=== PATIENT | female | born 1945 | race Caucasian/White ===

== ENCOUNTER → 2017-01-02 | Outpatient (CLI) | payer MEDICARE ==
[2016-10-24 11:04] VITALS: BP 152/77
[~2017-01-02] MED LIST: ACET325T9 PO; ALPR0.25 PO; CELE200C PO; DONE5TAB33 PO; DULO60CA6 PO; META800T21 PO; NYST1POW2 PO; OXYC-323 PO; PHEN-318 PO
[2017-01-02 23:03] LABS: BILIRUBIN,URINE SMALL (NEG); GLUCOSE,URINE NEGATIVE (NEG); NITRITE,URINE POSITIVE (NEG); PH,URINE 5.5; PROTEIN,URINE NEGATIVE (NEG-TRACE)
[2017-01-02 23:08] LABS: BACTERIA,URINE MODERATE /HPF (0-FEW); RBC,URINE 0 /HPF (0-2); SQUAMOUS EPITHELIAL CELL,UR MANY /LPF; WBC,URINE RARE /HPF (0-4)
== END | disposition home or self-care (01) ==
LOC: SPEC 22:15
PROVIDERS: ATTEND Internal Medicine
DX: Z51.89 Encounter for other specified aftercare (principal); G62.9 Polyneuropathy, unspecified; M62.81 Muscle weakness (generalized); N39.0 Urinary tract infection, site not specified
CPT/HCPCS: 81001; 87086; 87186

== ENCOUNTER → 2017-01-14 | Outpatient (CLI) | payer MEDICARE ==
[2016-10-24 11:04] VITALS: BP 152/77
== END | disposition home or self-care (01) ==
LOC: SPEC 12:48
PROVIDERS: ATTEND Family Medicine
DX: R19.7 Diarrhea, unspecified (principal)
CPT/HCPCS: 87324

== ENCOUNTER 2019-02-25 16:27 | Inpatient (IN) | payer MEDICARE, MEDICAID ==
[~2019-02-25] VITALS: Ht 167.6 cm; Wt 76.3 kg
[~2019-02-25 16:27] MED LIST changes: +ACET500T68 PO; +CITA10TA4 PO; -DONE5TAB33 PO; +DONE5TAB56 PO; +FURO-68 PO; +HYDR-3164 PO; +MELA3TAB2 PO; +MELO7.5T5 PO; +META-21 PO; -META800T21 PO; -OXYC-323 PO; +OXYC1TAB15 PO; +POTA20TA82 PO
--- NOTE | 2019-02-25 17:12 | RAD ---
PORTABLE CHEST 1V Clinical indications: ER PATIENT. INTERMITENT ATRAUMATIC CHEST PAIN X2 DAY. Hx of SCOLIOSIS. COMPARISON: 02/25/2017. Findings: No acute lung infiltrate or pleural effusion or pulmonary edema or lung mass or pneumothorax is seen. The heart size, pulmonary vasculature, mediastinum and both henry are stable. Scoliosis is evident. Impression: No acute radiographic abnormality is seen. Electronically signed by: Jm Lopez MD (02/25/2019 5:08 PM) [id number]
[2019-02-25 17:25] LABS: BASO % 1 % (0-3); EOS # 0.1 x10^3/uL (0.0-0.7); EOS % 3 % (0-3); HEMATOCRIT 40.1 % (36.0-47.0); HEMOGLOBIN 13.2 g/dL (12.0-15.5); LYMPH # 1.4 x10^3/uL (1.0-4.8); LYMPH % 27 % (24-48); MEAN CORPUSCULAR HEMOGLOBIN 29 pg (25-35); MEAN CORPUSCULAR HGB CONC 33 g/dL (31-37); MEAN CORPUSCULAR VOLUME 87 fL (79-100); MONO # 0.5 x10^3/uL (0.0-1.1); MONO % 11 % (0-9); NEUT # 2.9 x10^3uL (1.8-7.7); NEUT % 58 % (31-73); PLATELET COUNT 250 x10^3/uL (140-400); RED BLOOD COUNT 4.62 x10^6/uL (3.50-5.40); RED CELL DISTRIBUTION WIDTH 13.8 % (11.5-14.5)
--- NOTE | 2019-02-25 17:29 | PDOC1 ---
History and Physical Date of Admission Date of Admission DATE: 02/25/19 TIME: 17:28 Identification/Chief Complaint Chief Complaint SEEN IN ER, Patient is a 73 year old female is presenting with brought in by ambulance chest pain intermittent 2 days first described pressure onset 2 days ago from the detention no prior cardiac history history is limited by the patient's mild dementia currently not having any pain she did have a hip surgery 6 months ago shows she is basically wheelchair-bound AGITATED AT TIMES IN ER Past Medical History Past Medical History Past Medical History Cardiovascular: No pertinent hx Pulmonary: No pertinent hx GI: No pertinent hx Heme/Onc: No pertinent hx Musculoskeletal: low back pain Rheumatologic: No pertinent hx Infectious disease: No pertinent hx Renal/: No pertinent hx Dermatology: No pertinent hx Past Surgical History Past Surgical History: No pertinent history Family History Family History: Other (non contributory) Social History No ALCOHOL: none Cardiovascular: No pertinent hx Pulmonary: No pertinent hx GI: No pertinent hx Heme/Onc: No pertinent hx Musculoskeletal: low back pain Rheumatologic: No pertinent hx Infectious disease: No pertinent hx Renal/: No pertinent hx Past Surgical History Past Surgical History: No pertinent history Family History Family History PAST MEDICAL HISTORY: Significant for diverticulosis, history of urinary tract infections, degenerative arthritis, history of previous left knee pain and contracture, left hip pain, dementia, history of DVT in the left leg and scoliosis. PAST SURGICAL HISTORY: Right hip replacement, for which she has done very well. FAMILY HISTORY: She denies any significant family history. SOCIAL HISTORY: Negative for smoking, alcohol or drug use. MEDICATIONS: List is reviewed. ALLERGIES: She has no known drug allergies. Family History: Other Social History ALCOHOL: none Current Medications Current Medications Active Scripts Active Reported [place] 5-325 Tablet (Acetaminophen/Hydrocodone Bitart) 1 Each Tablet 1 Tab PO QID PRN Citalopram Hbr (Citalopram Hydrobromide) 10 Mg Tablet 10 Mg PO DAILY Acetaminophen 500 Mg Tablet 1,000 Mg PO PRN Q8HRS PRN Mobic (Meloxicam) 7.5 Mg Tablet 7.5 Mg PO DAILY Melatonin 3 Mg Tablet 5 Mg PO QHS PRN Potassium Chloride 20 Meq Tablet.er 20 Meq PO DAILY Lasix (Furosemide) 40 Mg Tablet 40 Mg PO DAILY Nystatin 1 Each Powder.ea. 1 Each PO PRN PRN USE PRN FOR CANDIDIASIS OF SKIN AND NAIL Allergies Allergies: Coded Allergies: No Known Medication Allergies (Verified Allergy, Unknown, 10/09/17) ROS Review of System Review of Systems Review of Systems Constitutional: Denies fever or chills [] Eyes: Denies change in visual acuity, redness, or eye pain [] HENT: Denies nasal congestion or sore throat [] Respiratory: D mild shortness of breath with pain last couple minutes at a time : Denies dysuria or hematuria [] Musculoskeleta Integument: Denies rash or skin lesions [] Neurologic: Denies headache, focal weakness or sensory changes [] Endocrine: Denies polyuria or polydipsia [] 14 PT systems were reviewed and found to be within normal limits, except as documented Gastrointestinal: No Nausea, No Vomiting, No Abdominal Pain, No Diarrhea, No Constipation, No Melena, No Hematochezia, No Other Musculoskeletal: Yes Joint Stiffness Neurological: Yes Behavorial Changes, Yes Gait Disturbance Physical Exam Physical Exam Physical Exam Physical Exam Constitutional: Well developed, well nourished, MOD acute distress, non-toxic appearance. [] HENT: Normocephalic, atraumatic, bilateral external ears normal, oropharynx moist, no oral exudates, nose normal. [] Eyes: PERRLA, EOMI, conjunctiva normal, no discharge. [] Neck: Normal range of motion, no tenderness, supple, no stridor. [] Cardiovascular:Heart rate regular rhythm, no murmur [] Lungs & Thorax: Bilateral breath sounds clear to auscultation FEW CRACKLES [] Abdomen: Bowel sounds normal, soft, no tenderness, no masses, no pulsatile masses. [] Skin: Warm, dry, no erythema, no rash. [] Back: No tenderness, no CVA tenderness. [] Extremities: No asymmetric leg swelling Neurologic: Alert and oriented X 3, normal motor function, normal sensory function, no focal deficits noted. [] Psychologic: Affect ANXIOUS, judgement POOR , mood normal. [] General: Cooperative, mild distress, moderate distress Heart: RRR, no gallops Breasts: Not examined Abdomen: Soft Rectal Exam: not examined Extremities: No edema Neuro: Cranial nerves 3-12 NL Vitals Vitals Vital Signs Date Time Temp Pulse Resp B/P (MAP) Pulse Ox O2 Delivery O2 Flow Rate FiO2 02/25/19 16:27 97.9 67 20 159/70 (99) 96 Room Air 97.9 Labs Labs Laboratory Tests Test 02/25/19 17:16 White Blood Count 5.0 x10^3/uL (4.0-11.0) Red Blood Count 4.62 x10^6/uL (3.50-5.40) Hemoglobin 13.2 g/dL (12.0-15.5) Hematocrit 40.1 % (36.0-47.0) Mean Corpuscular Volume 87 fL (79-100) Mean Corpuscular Hemoglobin 29 pg (25-35) Mean Corpuscular Hemoglobin Concent 33 g/dL (31-37) Red Cell Distribution Width 13.8 % (11.5-14.5) Platelet Count 250 x10^3/uL (140-400) Neutrophils (%) (Auto) 58 % (31-73) Lymphocytes (%) (Auto) 27 % (24-48) Monocytes (%) (Auto) 11 % (0-9) Eosinophils (%) (Auto) 3 % (0-3) Basophils (%) (Auto) 1 % (0-3) Neutrophils # (Auto) 2.9 x10^3uL (1.8-7.7) Lymphocytes # (Auto) 1.4 x10^3/uL (1.0-4.8) Monocytes # (Auto) 0.5 x10^3/uL (0.0-1.1) Eosinophils # (Auto) 0.1 x10^3/uL (0.0-0.7) Basophils # (Auto) 0.0 x10^3/uL (0.0-0.2) Laboratory Tests Test 02/25/19 17:16 White Blood Count 5.0 x10^3/uL (4.0-11.0) Red Blood Count 4.62 x10^6/uL (3.50-5.40) Hemoglobin 13.2 g/dL (12.0-15.5) Hematocrit 40.1 % (36.0-47.0) Mean Corpuscular Volume 87 fL (79-100) Mean Corpuscular Hemoglobin 29 pg (25-35) Mean Corpuscular Hemoglobin Concent 33 g/dL (31-37) Red Cell Distribution Width 13.8 % (11.5-14.5) Platelet Count 250 x10^3/uL (140-400) Neutrophils (%) (Auto) 58 % (31-73) Lymphocytes (%) (Auto) 27 % (24-48) Monocytes (%) (Auto) 11 % (0-9) Eosinophils (%) (Auto) 3 % (0-3) Basophils (%) (Auto) 1 % (0-3) Neutrophils # (Auto) 2.9 x10^3uL (1.8-7.7) Lymphocytes # (Auto) 1.4 x10^3/uL (1.0-4.8) Monocytes # (Auto) 0.5 x10^3/uL (0.0-1.1) Eosinophils # (Auto) 0.1 x10^3/uL (0.0-0.7) Basophils # (Auto) 0.0 x10^3/uL (0.0-0.2) Images Images PORTABLE CHEST 1V Clinical indications: ER PATIENT. INTERMITENT ATRAUMATIC CHEST PAIN X2 DAY. Hx of SCOLIOSIS. COMPARISON: 02/25/2017. Findings: No acute lung infiltrate or pleural effusion or pulmonary edema or lung mass or pneumothorax is seen. The heart size, pulmonary vasculature, mediastinum and both henry are stable. Scoliosis is evident. Impression: No acute radiographic abnormality is seen. Electronically signed by: Jennifer Lopez MD (02/25/2019 5:08 PM) [id number] DICTATED and SIGNED BY: JENNIFER LOPEZ MD DATE: 02/25/19 1708 VTE Prophylaxis Ordered VTE Prophylaxis Devices: Yes VTE Pharmacological Prophylaxi: Yes Assessment/Plan Assessment/Plan IMPRESSION 1. CHEST PAIN, unspecified 2. DEMENTIA, MODERATE 3. UTI 4. LABILE HYPERTENSION, UNCONTROLLED 5. near wheelchair confined PLAN SERIAL TROPONIN I TELE BLOOD CULT EMPERIC IV ANTIBIOTICS CVC BED IV FLUID SUPPORT TELE dvt prophylaxis ROSIO KENDALL MD Feb 25, 2019 17:29
[2019-02-25 17:34] LABS: CALCIUM 8.7 mg/dL (8.5-10.1); CREATININE 0.7 mg/dL (0.6-1.0); GFR 81.8; POTASSIUM 3.8 mmol/L (3.5-5.1)
[2019-02-25 17:43] LABS: ALBUMIN 3.6 g/dL (3.4-5.0); ALBUMIN/GLOBULIN RATIO 0.9 (1.0-1.7); TOTAL BILIRUBIN 0.2 mg/dL (0.2-1.0); TOTAL PROTEIN 7.5 g/dL (6.4-8.2)
--- NOTE | 2019-02-25 18:06 | PHYS DOC ---
Past Medical History Past Medical History: Other Additional Past Medical Histor: scoliosis, congenital hip problem,OCD Past Surgical History: Hip Replacement, Tonsillectomy Additional Past Surgical Histo: Rt HIP SURGERY Alcohol Use: Rarely Drug Use: None Adult General Chief Complaint Chief Complaint: CHEST PAIN HPI HPI Patient is a 73 year old female is presenting with brought in by ambulance chest pain intermittent 2 days first described pressure then said it was sharp onset 2 days ago from the group home no prior cardiac history history is limited by the patient's mild dementia currently not having any pain she did have a hip surgery 6 months ago shows she is basically wheelchair-bound so it is hard to assess for any exertional symptoms Review of Systems Review of Systems Constitutional: Denies fever or chills [] Eyes: Denies change in visual acuity, redness, or eye pain [] HENT: Denies nasal congestion or sore throat [] Respiratory: D mild shortness of breath with pain last couple minutes at a time : Denies dysuria or hematuria [] Musculoskeleta Integument: Denies rash or skin lesions [] Neurologic: Denies headache, focal weakness or sensory changes [] Endocrine: Denies polyuria or polydipsia [] All other systems were reviewed and found to be within normal limits, except as documented in this note. Allergies Allergies Allergies Coded Allergies Type Severity Reaction Last Updated Verified No Known Medication Allergies Allergy Unknown 10/09/17 Yes Physical Exam Physical Exam Constitutional: Well developed, well nourished, no acute distress, non-toxic appearance. [] HENT: Normocephalic, atraumatic, bilateral external ears normal, oropharynx moist, no oral exudates, nose normal. [] Eyes: PERRLA, EOMI, conjunctiva normal, no discharge. [] Neck: Normal range of motion, no tenderness, supple, no stridor. [] Cardiovascular:Heart rate regular rhythm, no murmur [] Lungs & Thorax: Bilateral breath sounds clear to auscultation [] Abdomen: Bowel sounds normal, soft, no tenderness, no masses, no pulsatile masses. [] Skin: Warm, dry, no erythema, no rash. [] Back: No tenderness, no CVA tenderness. [] Extremities: No asymmetric leg swelling Neurologic: Alert and oriented X 3, normal motor function, normal sensory function, no focal deficits noted. [] Psychologic: Affect normal, judgement normal, mood normal. [] Current Patient Data Vital Signs Vital Signs Date Time Temp Pulse Resp B/P (MAP) Pulse Ox O2 Delivery O2 Flow Rate FiO2 02/25/19 16:27 97.9 67 20 159/70 (99) 96 Room Air 97.9 Lab Values Laboratory Tests Test 02/25/19 17:16 White Blood Count 5.0 x10^3/uL (4.0-11.0) Red Blood Count 4.62 x10^6/uL (3.50-5.40) Hemoglobin 13.2 g/dL (12.0-15.5) Hematocrit 40.1 % (36.0-47.0) Mean Corpuscular Volume 87 fL (79-100) Mean Corpuscular Hemoglobin 29 pg (25-35) Mean Corpuscular Hemoglobin Concent 33 g/dL (31-37) Red Cell Distribution Width 13.8 % (11.5-14.5) Platelet Count 250 x10^3/uL (140-400) Neutrophils (%) (Auto) 58 % (31-73) Lymphocytes (%) (Auto) 27 % (24-48) Monocytes (%) (Auto) 11 % (0-9) H Eosinophils (%) (Auto) 3 % (0-3) Basophils (%) (Auto) 1 % (0-3) Neutrophils # (Auto) 2.9 x10^3uL (1.8-7.7) Lymphocytes # (Auto) 1.4 x10^3/uL (1.0-4.8) Monocytes # (Auto) 0.5 x10^3/uL (0.0-1.1) Eosinophils # (Auto) 0.1 x10^3/uL (0.0-0.7) Basophils # (Auto) 0.0 x10^3/uL (0.0-0.2) Sodium Level 138 mmol/L (136-145) Potassium Level 3.8 mmol/L (3.5-5.1) Chloride Level 101 mmol/L (98-107) Carbon Dioxide Level 29 mmol/L (21-32) Anion Gap 8 (6-14) Blood Urea Nitrogen 21 mg/dL (7-20) H Creatinine 0.7 mg/dL (0.6-1.0) Estimated GFR (Cockcroft-Gault) 81.8 BUN/Creatinine Ratio 30 (6-20) H Glucose Level 117 mg/dL (70-99) H Calcium Level 8.7 mg/dL (8.5-10.1) Total Bilirubin 0.2 mg/dL (0.2-1.0) Aspartate Amino Transferase (AST) 18 U/L (15-37) Alanine Aminotransferase (ALT) 17 U/L (14-59) Alkaline Phosphatase 109 U/L (46-116) Troponin I Quantitative < 0.017 ng/mL (0.000-0.055) HK-Hjk-U-Type Natriuretic Peptide 82 pg/mL (0-124) Total Protein 7.5 g/dL (6.4-8.2) Albumin 3.6 g/dL (3.4-5.0) Albumin/Globulin Ratio 0.9 (1.0-1.7) L Laboratory Tests 02/25/19 17:16 Laboratory Tests 02/25/19 17:16 EKG EKG []EKG shows normal sinus rhythm rate of 66 no acute ischemic changes noted interpreted by me the time of encounter. Radiology/Procedures Radiology/Procedures [] Impressions: Chest x-ray no acute pathology Course & Med Decision Making Course & Med Decision Making Pertinent Labs and Imaging studies reviewed. (See chart for details) []Chest pain no previous cardiac history however she is a 73-year-old lady with dementia difficult to obtain an accurate history I think given her age would be reasonable to admit her overnight for serial troponins and can't go from there. I did speak with Dr. Hendricks plan to admit EKG and troponin were negative acute in the emergency room. The d-dimer is currently in process Dragon Disclaimer Dragon Disclaimer This electronic medical record was generated, in whole or in part, using a voice recognition dictation system. Departure Departure Impression: Primary Impression: Chest pain Disposition: ADMITTED INPATIENT Admitting Physician: Kody Ludwig Condition: STABLE Referrals: KWASI PONCE MD (PCP) MALDONADO JUAREZ MD Feb 25, 2019 18:06
[2019-02-25 18:10] LABS: PROTHROMBIN TIME PATIENT 12.5 SEC (11.7-14.0)
--- NOTE | 2019-02-25 18:10 | EKG ---
[facility] [address] [place] [address] Test Date: 2019-02-25 Test Time: 16:38:02 Pat Name: SOFIE HARRIS Department: Room: Gender: F [employer]: : 1945 Requested By: MALDONADO JUAREZ Order Number: [id number] Reading MD: Faisal Rasmussen Measurements Intervals [place] Rate: 66 P: 53 TX: 142 QRS: 50 QRSD: 86 T: 58 QT: 392 QTc: 413 Interpretive Statements SINUS RHYTHM Electronically Signed On 03-03-2019 13:09:43 CDT by Faisal Rasmussen
[2019-02-25 18:25] LABS: D-DIMER 1.4 ug/mlFEU (0.00-0.50)
[2019-02-25] MEDS ORDERED: IOHEXOL 350 MG/ML 100 ML VIAL. IV ONE (19:45)
[2019-02-25] MEDS ORDERED: CONTRAST GIVEN. MC PRN (19:45)
[2019-02-25 19:50] VITALS: BP 161/83
[2019-02-25] MEDS ORDERED: NON FORMULARY ITEM (Melatonin 5 MG) PO PRN (20:45)
[2019-02-25] MEDS ORDERED: ACETAMINOPHEN 500 MG TABLET PO PRN (20:45)
[2019-02-25] MEDS ORDERED: ENOXAPARIN 40 MG/0.4 ML SYRINGE. SQ SCH (21:00)
[2019-02-25] MEDS ORDERED: NITROGLYCERIN SUBLINGUAL 0.4 MG BOTTLE OF 25. SL PRN (21:00)
[2019-02-25] MEDS ORDERED: NYSTATIN TOPICAL POWDER 15GM BOTTLE. TP PRN (21:00)
--- NOTE | 2019-02-25 21:07 | NUR ---
The patient, SOFIE HARRIS, 73 y/o, F admitted by ROSIO KENDALL MD, was given written information regarding hospital policies, unit procedures and contact persons. Valuables were checked and left in room with patient.
[2019-02-25] MEDS: ALPRAZolam 0.25 MG TABLET PO PRN (23:09)
[2019-02-25 23:30] VITALS: BP 129/55
[2019-02-26 05:19] LABS: BASO # 0.1 x10^3/uL (0.0-0.2); BASO % 1 % (0-3); EOS # 0.2 x10^3/uL (0.0-0.7); EOS % 3 % (0-3); HEMATOCRIT 40.6 % (36.0-47.0); HEMOGLOBIN 13.3 g/dL (12.0-15.5); LYMPH # 1.4 x10^3/uL (1.0-4.8); LYMPH % 26 % (24-48); MEAN CORPUSCULAR HEMOGLOBIN 29 pg (25-35); MEAN CORPUSCULAR HGB CONC 33 g/dL (31-37); MEAN CORPUSCULAR VOLUME 87 fL (79-100); MONO # 0.5 x10^3/uL (0.0-1.1); MONO % 9 % (0-9); NEUT # 3.2 x10^3uL (1.8-7.7); NEUT % 61 % (31-73); PLATELET COUNT 235 x10^3/uL (140-400); RED BLOOD COUNT 4.64 x10^6/uL (3.50-5.40); RED CELL DISTRIBUTION WIDTH 13.6 % (11.5-14.5); WHITE BLOOD COUNT 5.3 x10^3/uL (4.0-11.0)
[2019-02-26 05:38] LABS: CALCIUM 8.6 mg/dL (8.5-10.1); CREATININE 0.8 mg/dL (0.6-1.0); GFR 70.1; POTASSIUM 3.7 mmol/L (3.5-5.1)
[2019-02-26 07:00] VITALS: BP 148/62
[2019-02-26] MEDS ORDERED: POTASSIUM CHLORIDE 20 MEQ TABLET.ER. PO SCH ×2 (08:00→14:00)
[2019-02-26] MEDS ORDERED: IOHEXOL 350 MG/ML 100 ML VIAL. ONE (08:03)
--- NOTE | 2019-02-26 08:04 | PDOC ---
PROGRESS NOTES Chief Complaint Chief Complaint 1. CHEST PAIN, unspecified 2. DEMENTIA, MODERATE 3. UTI 4. LABILE HYPERTENSION, UNCONTROLLED 5. near wheelchair confined 6. Left knee OA s/p femoral fracture, has ortho f/u outpatient already established History of Present Illness History of Present Illness Patient is a 73 year old female is presenting with brought in by ambulance chest pain intermittent 2 days first described pressure [facility] No prior cardiac history history is limited by the patient's mild dementia currently not having any pain she did have a hip surgery 6 months ago shows she is basically wheelchair-bound Vitals Vitals Vital Signs Date Time Temp Pulse Resp B/P (MAP) Pulse Ox O2 Delivery O2 Flow Rate FiO2 02/25/19 23:30 98.2 70 20 129/55 (79) 96 Room Air 98.2 Physical Exam General: Cooperative, mild distress, moderate distress Lungs: Clear Abdomen: Soft Extremities: No edema Labs LABS Laboratory Tests Test 02/25/19 17:16 02/25/19 17:55 02/25/19 21:15 02/26/19 04:05 White Blood Count 5.0 x10^3/uL (4.0-11.0) 5.3 x10^3/uL (4.0-11.0) Red Blood Count 4.62 x10^6/uL (3.50-5.40) 4.64 x10^6/uL (3.50-5.40) Hemoglobin 13.2 g/dL (12.0-15.5) 13.3 g/dL (12.0-15.5) Hematocrit 40.1 % (36.0-47.0) 40.6 % (36.0-47.0) Mean Corpuscular Volume 87 fL (79-100) 87 fL (79-100) Mean Corpuscular Hemoglobin 29 pg (25-35) 29 pg (25-35) Mean Corpuscular Hemoglobin Concent 33 g/dL (31-37) 33 g/dL (31-37) Red Cell Distribution Width 13.8 % (11.5-14.5) 13.6 % (11.5-14.5) Platelet Count 250 x10^3/uL (140-400) 235 x10^3/uL (140-400) Neutrophils (%) (Auto) 58 % (31-73) 61 % (31-73) Lymphocytes (%) (Auto) 27 % (24-48) 26 % (24-48) Monocytes (%) (Auto) 11 % (0-9) 9 % (0-9) Eosinophils (%) (Auto) 3 % (0-3) 3 % (0-3) Basophils (%) (Auto) 1 % (0-3) 1 % (0-3) Neutrophils # (Auto) 2.9 x10^3uL (1.8-7.7) 3.2 x10^3uL (1.8-7.7) Lymphocytes # (Auto) 1.4 x10^3/uL (1.0-4.8) 1.4 x10^3/uL (1.0-4.8) Monocytes # (Auto) 0.5 x10^3/uL (0.0-1.1) 0.5 x10^3/uL (0.0-1.1) Eosinophils # (Auto) 0.1 x10^3/uL (0.0-0.7) 0.2 x10^3/uL (0.0-0.7) Basophils # (Auto) 0.0 x10^3/uL (0.0-0.2) 0.1 x10^3/uL (0.0-0.2) Sodium Level 138 mmol/L (136-145) 141 mmol/L (136-145) Potassium Level 3.8 mmol/L (3.5-5.1) 3.7 mmol/L (3.5-5.1) Chloride Level 101 mmol/L (98-107) 104 mmol/L (98-107) Carbon Dioxide Level 29 mmol/L (21-32) 29 mmol/L (21-32) Anion Gap 8 (6-14) 8 (6-14) Blood Urea Nitrogen 21 mg/dL (7-20) 18 mg/dL (7-20) Creatinine 0.7 mg/dL (0.6-1.0) 0.8 mg/dL (0.6-1.0) Estimated GFR (Cockcroft-Gault) 81.8 70.1 BUN/Creatinine Ratio 30 (6-20) Glucose Level 117 mg/dL (70-99) 93 mg/dL (70-99) Calcium Level 8.7 mg/dL (8.5-10.1) 8.6 mg/dL (8.5-10.1) Total Bilirubin 0.2 mg/dL (0.2-1.0) Aspartate Amino Transf (AST/SGOT) 18 U/L (15-37) Alanine Aminotransferase (ALT/SGPT) 17 U/L (14-59) Alkaline Phosphatase 109 U/L (46-116) Troponin I Quantitative < 0.017 ng/mL (0.000-0.055) < 0.017 ng/mL (0.000-0.055) < 0.017 ng/mL (0.000-0.055) RD-Gxz-D-Type Natriuretic Peptide 82 pg/mL (0-124) Total Protein 7.5 g/dL (6.4-8.2) Albumin 3.6 g/dL (3.4-5.0) Albumin/Globulin Ratio 0.9 (1.0-1.7) Prothrombin Time 12.5 SEC (11.7-14.0) Prothromb Time International Ratio 1.0 (0.8-1.1) D-Dimer (Iona) 1.40 ug/mlFEU (0.00-0.50) Assessment and Plan Assessmemt and Plan Problems Medical Problems: (1) Chest pain Status: Acute Comment Review of Relevant I have reviewed the following items francisco (where applicable) has been applied. Labs Laboratory Tests Test 02/25/19 17:16 02/25/19 17:55 02/25/19 21:15 02/26/19 04:05 White Blood Count 5.0 x10^3/uL (4.0-11.0) 5.3 x10^3/uL (4.0-11.0) Red Blood Count 4.62 x10^6/uL (3.50-5.40) 4.64 x10^6/uL (3.50-5.40) Hemoglobin 13.2 g/dL (12.0-15.5) 13.3 g/dL (12.0-15.5) Hematocrit 40.1 % (36.0-47.0) 40.6 % (36.0-47.0) Mean Corpuscular Volume 87 fL (79-100) 87 fL (79-100) Mean Corpuscular Hemoglobin 29 pg (25-35) 29 pg (25-35) Mean Corpuscular Hemoglobin Concent 33 g/dL (31-37) 33 g/dL (31-37) Red Cell Distribution Width 13.8 % (11.5-14.5) 13.6 % (11.5-14.5) Platelet Count 250 x10^3/uL (140-400) 235 x10^3/uL (140-400) Neutrophils (%) (Auto) 58 % (31-73) 61 % (31-73) Lymphocytes (%) (Auto) 27 % (24-48) 26 % (24-48) Monocytes (%) (Auto) 11 % (0-9) 9 % (0-9) Eosinophils (%) (Auto) 3 % (0-3) 3 % (0-3) Basophils (%) (Auto) 1 % (0-3) 1 % (0-3) Neutrophils # (Auto) 2.9 x10^3uL (1.8-7.7) 3.2 x10^3uL (1.8-7.7) Lymphocytes # (Auto) 1.4 x10^3/uL (1.0-4.8) 1.4 x10^3/uL (1.0-4.8) Monocytes # (Auto) 0.5 x10^3/uL (0.0-1.1) 0.5 x10^3/uL (0.0-1.1) Eosinophils # (Auto) 0.1 x10^3/uL (0.0-0.7) 0.2 x10^3/uL (0.0-0.7) Basophils # (Auto) 0.0 x10^3/uL (0.0-0.2) 0.1 x10^3/uL (0.0-0.2) Sodium Level 138 mmol/L (136-145) 141 mmol/L (136-145) Potassium Level 3.8 mmol/L (3.5-5.1) 3.7 mmol/L (3.5-5.1) Chloride Level 101 mmol/L (98-107) 104 mmol/L (98-107) Carbon Dioxide Level 29 mmol/L (21-32) 29 mmol/L (21-32) Anion Gap 8 (6-14) 8 (6-14) Blood Urea Nitrogen 21 mg/dL (7-20) 18 mg/dL (7-20) Creatinine 0.7 mg/dL (0.6-1.0) 0.8 mg/dL (0.6-1.0) Estimated GFR (Cockcroft-Gault) 81.8 70.1 BUN/Creatinine Ratio 30 (6-20) Glucose Level 117 mg/dL (70-99) 93 mg/dL (70-99) Calcium Level 8.7 mg/dL (8.5-10.1) 8.6 mg/dL (8.5-10.1) Total Bilirubin 0.2 mg/dL (0.2-1.0) Aspartate Amino Transf (AST/SGOT) 18 U/L (15-37) Alanine Aminotransferase (ALT/SGPT) 17 U/L (14-59) Alkaline Phosphatase 109 U/L (46-116) Troponin I Quantitative < 0.017 ng/mL (0.000-0.055) < 0.017 ng/mL (0.000-0.055) < 0.017 ng/mL (0.000-0.055) KQ-Czr-B-Type Natriuretic Peptide 82 pg/mL (0-124) Total Protein 7.5 g/dL (6.4-8.2) Albumin 3.6 g/dL (3.4-5.0) Albumin/Globulin Ratio 0.9 (1.0-1.7) Prothrombin Time 12.5 SEC (11.7-14.0) Prothromb Time International Ratio 1.0 (0.8-1.1) D-Dimer (Iona) 1.40 ug/mlFEU (0.00-0.50) Laboratory Tests Test 02/25/19 17:16 02/25/19 17:55 02/25/19 21:15 02/26/19 04:05 White Blood Count 5.0 x10^3/uL (4.0-11.0) 5.3 x10^3/uL (4.0-11.0) Red Blood Count 4.62 x10^6/uL (3.50-5.40) 4.64 x10^6/uL (3.50-5.40) Hemoglobin 13.2 g/dL (12.0-15.5) 13.3 g/dL (12.0-15.5) Hematocrit 40.1 % (36.0-47.0) 40.6 % (36.0-47.0) Mean Corpuscular Volume 87 fL (79-100) 87 fL (79-100) Mean Corpuscular Hemoglobin 29 pg (25-35) 29 pg (25-35) Mean Corpuscular Hemoglobin Concent 33 g/dL (31-37) 33 g/dL (31-37) Red Cell Distribution Width 13.8 % (11.5-14.5) 13.6 % (11.5-14.5) Platelet Count 250 x10^3/uL (140-400) 235 x10^3/uL (140-400) Neutrophils (%) (Auto) 58 % (31-73) 61 % (31-73) Lymphocytes (%) (Auto) 27 % (24-48) 26 % (24-48) Monocytes (%) (Auto) 11 % (0-9) 9 % (0-9) Eosinophils (%) (Auto) 3 % (0-3) 3 % (0-3) Basophils (%) (Auto) 1 % (0-3) 1 % (0-3) Neutrophils # (Auto) 2.9 x10^3uL (1.8-7.7) 3.2 x10^3uL (1.8-7.7) Lymphocytes # (Auto) 1.4 x10^3/uL (1.0-4.8) 1.4 x10^3/uL (1.0-4.8) Monocytes # (Auto) 0.5 x10^3/uL (0.0-1.1) 0.5 x10^3/uL (0.0-1.1) Eosinophils # (Auto) 0.1 x10^3/uL (0.0-0.7) 0.2 x10^3/uL (0.0-0.7) Basophils # (Auto) 0.0 x10^3/uL (0.0-0.2) 0.1 x10^3/uL (0.0-0.2) Sodium Level 138 mmol/L (136-145) 141 mmol/L (136-145) Potassium Level 3.8 mmol/L (3.5-5.1) 3.7 mmol/L (3.5-5.1) Chloride Level 101 mmol/L (98-107) 104 mmol/L (98-107) Carbon Dioxide Level 29 mmol/L (21-32) 29 mmol/L (21-32) Anion Gap 8 (6-14) 8 (6-14) Blood Urea Nitrogen 21 mg/dL (7-20) 18 mg/dL (7-20) Creatinine 0.7 mg/dL (0.6-1.0) 0.8 mg/dL (0.6-1.0) Estimated GFR (Cockcroft-Gault) 81.8 70.1 BUN/Creatinine Ratio 30 (6-20) Glucose Level 117 mg/dL (70-99) 93 mg/dL (70-99) Calcium Level 8.7 mg/dL (8.5-10.1) 8.6 mg/dL (8.5-10.1) Total Bilirubin 0.2 mg/dL (0.2-1.0) Aspartate Amino Transf (AST/SGOT) 18 U/L (15-37) Alanine Aminotransferase (ALT/SGPT) 17 U/L (14-59) Alkaline Phosphatase 109 U/L (46-116) Troponin I Quantitative < 0.017 ng/mL (0.000-0.055) < 0.017 ng/mL (0.000-0.055) < 0.017 ng/mL (0.000-0.055) GE-Fdj-A-Type Natriuretic Peptide 82 pg/mL (0-124) Total Protein 7.5 g/dL (6.4-8.2) Albumin 3.6 g/dL (3.4-5.0) Albumin/Globulin Ratio 0.9 (1.0-1.7) Prothrombin Time 12.5 SEC (11.7-14.0) Prothromb Time International Ratio 1.0 (0.8-1.1) D-Dimer (Iona) 1.40 ug/mlFEU (0.00-0.50) Medications Current Medications Iohexol (Omnipaque 350 Mg/ml) 100 ml 1X ONCE IV ; Start 02/25/19 at 19:45; Stop 02/25/19 at 19:46; Status DC Info (CONTRAST GIVEN -- Rx MONITORING) 1 each PRN DAILY PRN MC SEE COMMENTS; Start 02/25/19 at 19:45; Stop 02/27/19 at 19:44 Citalopram Hydrobromide (CeleXA) 10 mg DAILY PO ; Start 02/26/19 at 09:00 Acetaminophen (Tylenol) 500 mg PRN Q8HRS PRN PO MILD PAIN / TEMP; Start at 20:45 Non-Formulary Medication (Melatonin ) 5 mg QHS PRN PO INSOMNIA; Start 02/25/19 at 20:45; Status UNV Nystatin (Nystop) 1 kosta PRN BID PRN TP CANDIDIASIS OF SKIN AND NAIL; Start at 21:00 Potassium Chloride (Klor-Con) 20 meq DAILYWBKFT PO ; Start 02/26/19 at 08:00 Enoxaparin Sodium (Lovenox 40mg Syringe) 40 mg Q24H SQ ; Start 02/25/19 at 21:00 Nitroglycerin (Nitrostat) 0.4 mg PRN Q5MIN PRN SL CHEST PAIN; Start 02/25/19 at 21:00 Alprazolam (Xanax) 0.25 mg PRN Q6HRS PRN PO ANXIETY / AGITATION Last administered on 02/25/19at 23:09; Start 02/25/19 at 22:45 Active Scripts Active Reported Letts 5-325 Tablet (Acetaminophen/Hydrocodone Bitart) 1 Each Tablet 1 Tab PO QID PRN Citalopram Hbr (Citalopram Hydrobromide) 10 Mg Tablet 10 Mg PO DAILY Acetaminophen 500 Mg Tablet 1,000 Mg PO PRN Q8HRS PRN Mobic (Meloxicam) 7.5 Mg Tablet 7.5 Mg PO DAILY Melatonin 3 Mg Tablet 5 Mg PO QHS PRN Potassium Chloride 20 Meq Tablet.er 20 Meq PO DAILY Lasix (Furosemide) 40 Mg Tablet 40 Mg PO DAILY Nystatin 1 Each Powder.ea. 1 Each PO PRN PRN USE PRN FOR CANDIDIASIS OF SKIN AND NAIL Vitals/I & O Vital Sign - Last 24 Hours 02/25/19 02/25/19 02/25/19 02/25/19 16:27 17:00 17:30 18:00 Temp 97.9 97.9 Pulse 67 66 64 62 Resp 20 18 18 18 B/P (MAP) 159/70 (99) 132/62 (85) 132/63 (86) 145/71 (95) Pulse Ox 96 96 96 93 O2 Delivery Room Air Room Air Room Air Room Air 02/25/19 02/25/19 02/25/19 02/25/19 18:30 19:00 19:50 20:19 Temp 98.3 98.3 Pulse 64 70 68 Resp 18 16 18 B/P (MAP) 139/66 (90) 192/79 (116) 161/83 (109) Pulse Ox 95 99 96 O2 Delivery Room Air Room Air Room Air Room Air 02/25/19 23:30 Temp 98.2 98.2 Pulse 70 Resp 20 B/P (MAP) 129/55 (79) Pulse Ox 96 O2 Delivery Room Air Intake and Output 02/25/19 02/25/19 02/26/19 14:59 22:59 06:59 Intake Total 420 ml Output Total 600 ml Balance -180 ml Images CTPA - 1. No CT evidence of central pulmonary emboli. 2. Mild bibasilar dependent atelectasis and/or edema. EVA GARCIA MD Feb 26, 2019 08:04
[2019-02-26] MEDS ORDERED: POTASSIUM CHLORIDE 20 MEQ TABLET.ER. PO ONE (08:15)
[2019-02-26 08:16] LABS: BILIRUBIN,URINE NEGATIVE (NEG); CLARITY,URINE CLEAR; COLOR,URINE YELLOW; NITRITE,URINE NEGATIVE (NEG); PH,URINE 7.5; PROTEIN,URINE NEGATIVE (NEG-TRACE); UROBILINOGEN,URINE 0.2 mg/dL (0.2 mg/dL)
[2019-02-26 08:34] LABS: BACTERIA,URINE FEW /HPF (0-FEW); RBC,URINE OCC /HPF (0-2); SQUAMOUS EPITHELIAL CELL,UR FEW /LPF; WBC,URINE OCC /HPF (0-4)
[2019-02-26] MEDS ORDERED: CITALOPRAM 10 MG TABLET. PO SCH (09:00)
[2019-02-26 09:01] LABS: CHOLESTEROL/HDL RATIO 5.4
--- NOTE | 2019-02-26 10:01 | RAD ---
CTA of the chest with contrast, 02/26/2019: HISTORY: Shortness of breath, elevated d-dimer Multidetector CT imaging was performed following an IV bolus injection of iodinated contrast material. Multiplanar reconstructions were produced including coronal and sagittal MIP images images. The study was partially compromised by patient respiratory motion artifact. No filling defects are seen in the central pulmonary arteries to suggest pulmonary emboli. There is calcific plaquing of the thoracic aorta and its branches without evidence of aortic aneurysm or dissection. No mediastinal or hilar adenopathy is evident. There are mild streaky and groundglass opacities in the lung bases likely representing dependent edema/atelectasis. There is mild bilateral apical pleural-parenchymal scarring. No pleural fluid is evident. There is a moderate thoracic scoliosis with moderate multilevel degenerative change. IMPRESSION: 1. No CT evidence of central pulmonary emboli. 2. Mild bibasilar dependent atelectasis and/or edema. PQRS Compliance Statement: One or more of the following individualized dose reduction techniques were utilized for this examination: 1. Automated exposure control 2. Adjustment of the mA and/or kV according to patient size 3. Use of iterative reconstruction technique Electronically signed by: Christiano Lux MD (02/26/2019 9:58 AM) [facility]
--- NOTE | 2019-02-26 10:08 | NUR ---
SS following for discharge planning. SS received notification that pt was a LTC resident from [facility] [place], ; fax [phone]. SS contacted [facility] to verify pt's previous placement. [facility] confirmed that pt was a LTC resident from there facility and could return when medically stable for discharge.
--- NOTE | 2019-02-26 10:10 | PDOC2 ---
CARDIAC CONSULT DATE OF CONSULT Date of Consult DATE: 02/26/19 TIME: 09:56 REASON FOR CONSULT Reason for Consult: Chest pain REFERRING PHYSICIAN Referring Physician: Rashmi SOURCE Source: Chart review, Patient HISTORY OF PRESENT ILLNESS HISTORY OF PRESENT ILLNESS This is a 73 yo female admitted for complains of chest pain. So far overnight she has not been complaining of it but instead has been belligerent with the staff sometimes cursing. She has significant dementia. She is uncooperative. Per chart review her pain was sharp and no noted SOA or nausea or vomiting. No prior hx of CAD or any arrhythmias. Denies n/v or CP for me but complains more of her left knee and has occurred graduallky and flexed to 60 degrees an unable to straighten it and complains that it hurts. Neurovascular status intact and no significant selling. PAST MEDICAL HISTORY CENTRAL NERVOUS SYSTEM: Dementia GI: Diverticulosis Heme/Onc: Other (LLE DVT) Psych: Other (OCD) Musculoskeletal: Osteoarthritis, Other (scoliosis fall. ) Renal/: UTI PAST SURGICAL HISTORY Past Surgical History: Total hip replacement (right hip), Tonsillectomy, Other (ORIF left hip) FAMILY HISTORY Family History: Family History Unknown SOCIAL HISTORY Smoke: No ALCOHOL: none Drugs: None Lives: [facility] CURRENT MEDICATIONS CURRENT MEDICATIONS Current Medications Medications (Trade) Dose Ordered Sig/Karen Route PRN Reason Start Time Stop Time Status Last Admin Dose Admin Iohexol (Omnipaque 350 Mg/ml) 100 ml 1X ONCE IV 02/25/19 19:45 02/25/19 19:46 DC 02/25/19 08:40 Alprazolam (Xanax) 0.25 mg PRN Q6HRS PRN PO ANXIETY / AGITATION 02/25/19 22:45 02/25/19 23:09 ALLERGIES ALLERGIES: Coded Allergies: No Known Medication Allergies (Verified Allergy, Unknown, 10/09/17) ROS Review of System limited, poor historian PHYSICAL EXAM General: Alert, Cooperative, No acute distress HEENT: Atraumatic, Mucous membr. moist/pink Lungs: Clear to auscultation, Normal air movement Heart: Regular rate (SR), Normal S1, Normal S2, No murmurs, Other (2/6 TAYLOR border) Abdomen: Soft, No tenderness Extremities: No cyanosis, No edema Skin: No breakdown, No significant lesion Neuro: Normal speech, Sensation intact Psych/Mental Status: Other (anxious) VITALS VITALS Vital Signs Date Time Temp Pulse Resp B/P (MAP) Pulse Ox O2 Delivery O2 Flow Rate FiO2 02/26/19 07:00 97.6 68 18 148/62 (90) 95 Room Air 97.6 LABS Lab: Laboratory Tests Test 02/25/19 17:16 02/25/19 17:55 02/25/19 21:15 02/26/19 04:05 White Blood Count 5.0 x10^3/uL (4.0-11.0) 5.3 x10^3/uL (4.0-11.0) Red Blood Count 4.62 x10^6/uL (3.50-5.40) 4.64 x10^6/uL (3.50-5.40) Hemoglobin 13.2 g/dL (12.0-15.5) 13.3 g/dL (12.0-15.5) Hematocrit 40.1 % (36.0-47.0) 40.6 % (36.0-47.0) Mean Corpuscular Volume 87 fL (79-100) 87 fL (79-100) Mean Corpuscular Hemoglobin 29 pg (25-35) 29 pg (25-35) Mean Corpuscular Hemoglobin Concent 33 g/dL (31-37) 33 g/dL (31-37) Red Cell Distribution Width 13.8 % (11.5-14.5) 13.6 % (11.5-14.5) Platelet Count 250 x10^3/uL (140-400) 235 x10^3/uL (140-400) Neutrophils (%) (Auto) 58 % (31-73) 61 % (31-73) Lymphocytes (%) (Auto) 27 % (24-48) 26 % (24-48) Monocytes (%) (Auto) 11 % (0-9) 9 % (0-9) Eosinophils (%) (Auto) 3 % (0-3) 3 % (0-3) Basophils (%) (Auto) 1 % (0-3) 1 % (0-3) Neutrophils # (Auto) 2.9 x10^3uL (1.8-7.7) 3.2 x10^3uL (1.8-7.7) Lymphocytes # (Auto) 1.4 x10^3/uL (1.0-4.8) 1.4 x10^3/uL (1.0-4.8) Monocytes # (Auto) 0.5 x10^3/uL (0.0-1.1) 0.5 x10^3/uL (0.0-1.1) Eosinophils # (Auto) 0.1 x10^3/uL (0.0-0.7) 0.2 x10^3/uL (0.0-0.7) Basophils # (Auto) 0.0 x10^3/uL (0.0-0.2) 0.1 x10^3/uL (0.0-0.2) Sodium Level 138 mmol/L (136-145) 141 mmol/L (136-145) Potassium Level 3.8 mmol/L (3.5-5.1) 3.7 mmol/L (3.5-5.1) Chloride Level 101 mmol/L (98-107) 104 mmol/L (98-107) Carbon Dioxide Level 29 mmol/L (21-32) 29 mmol/L (21-32) Anion Gap 8 (6-14) 8 (6-14) Blood Urea Nitrogen 21 mg/dL (7-20) 18 mg/dL (7-20) Creatinine 0.7 mg/dL (0.6-1.0) 0.8 mg/dL (0.6-1.0) Estimated GFR (Cockcroft-Gault) 81.8 70.1 BUN/Creatinine Ratio 30 (6-20) Glucose Level 117 mg/dL (70-99) 93 mg/dL (70-99) Calcium Level 8.7 mg/dL (8.5-10.1) 8.6 mg/dL (8.5-10.1) Total Bilirubin 0.2 mg/dL (0.2-1.0) Aspartate Amino Transf (AST/SGOT) 18 U/L (15-37) Alanine Aminotransferase (ALT/SGPT) 17 U/L (14-59) Alkaline Phosphatase 109 U/L (46-116) Troponin I Quantitative < 0.017 ng/mL (0.000-0.055) < 0.017 ng/mL (0.000-0.055) < 0.017 ng/mL (0.000-0.055) LN-Kgo-X-Type Natriuretic Peptide 82 pg/mL (0-124) Total Protein 7.5 g/dL (6.4-8.2) Albumin 3.6 g/dL (3.4-5.0) Albumin/Globulin Ratio 0.9 (1.0-1.7) Prothrombin Time 12.5 SEC (11.7-14.0) Prothromb Time International Ratio 1.0 (0.8-1.1) D-Dimer (Iona) 1.40 ug/mlFEU (0.00-0.50) Triglycerides Level 200 mg/dL (0-150) Cholesterol Level 221 mg/dL (0-200) LDL Cholesterol, Calculated 140 mg/dL (0-100) VLDL Cholesterol, Calculated 40 mg/dL (0-40) Non-HDL Cholesterol Calculated 180 mg/dL (0-129) HDL Cholesterol 41 mg/dL (40-60) Cholesterol/HDL Ratio 5.4 Test 02/26/19 06:00 Urine Collection Type Unknown Urine Color Yellow Urine Clarity Clear Urine pH 7.5 Urine Specific [place] 1.015 Urine Protein Negative mg/dL (NEG-TRACE) Urine Glucose (UA) Negative mg/dL (NEG) Urine Ketones (Stick) Negative mg/dL (NEG) Urine Blood Negative (NEG) Urine Nitrite Negative (NEG) Urine Bilirubin Negative (NEG) Urine Urobilinogen Dipstick 0.2 mg/dL (0.2 mg/dL) Urine Leukocyte Esterase Trace (NEG) Urine RBC Occ /HPF (0-2) Urine WBC Occ /HPF (0-4) Urine Squamous Epithelial Cells Few /LPF Urine Bacteria Few /HPF (0-FEW) ASSESSMENT/PLAN ASSESSMENT/PLAN 1. Atypical CP: CTA chest pending with hx of LLE DVT. trops nml, EKG SR without acute changes. MSK reproducible. 2. Dementia/agitation 3. HLP 4. HTN: bouts of elevated BP with agitation playing a factor. 5. Left knee pain: xray pending, r/t to fall?, unable to straighten. Defer to PCP Recommendations 1. Statin, TTE 2. Await imagings. No further testing if TTE is unremarkable. 3. Consider H2 ifeoma with chronic NSAID use. ERIN KONG APRN Feb 26, 2019 10:10
[2019-02-26] MEDS: ALPRAZolam 0.25 MG TABLET PO PRN (10:50)
[2019-02-26 11:00] VITALS: BP 179/76
[2019-02-26] MEDS ORDERED: DICLOFENAC SODIUM 1% TOPICAL GEL 100GM TUBE. TP SCH (11:00)
--- NOTE | 2019-02-26 11:57 | CARD ---
MR#: [id number] Date of Study: 02/26/2019 Ordering Physician: ROSIO KENDALL, Referring Physician: ROSIO KENDALL, Tech: Matilde Huang APPROVED REPORT EXAM: Two-dimensional and M-mode echocardiogram with Doppler and color Doppler. Other Information Quality : AverageHR: 64bpm INDICATION Chest Pain 2D DIMENSIONS RVDd3.5 (2.9-3.5cm)Left Atrium(2D)3.1 (1.6-4.0cm) IVSd1.1 (0.7-1.1cm)Aortic Root(2D)3.1 (2.0-3.7cm) LVDd4.0 (3.9-5.9cm)LVOT Diameter2.0 (1.8-2.4cm) PWd1.0 (0.7-1.1cm)LVDs2.4 (2.5-4.0cm) FS (%) 38.5 %SV47.8 ml LVEF(%)69.4 (>50%) Aortic Valve AoV Peak Sanju.133.0cm/sAoV VTI32.6cm AO Peak GR.7.1mmHgLVOT VTI 20.88cm AO Mean GR.5mmHg Mitral Valve MV E Wuvrxhbw93.6cm/sMV DECEL [id number] MV A Ilsrkjxj35.6cm/sE/A Ratio0.6 TDI Lateral E' P. V5.34cm/sMedial E' P. V4.76cm/s E/Lateral E'10.0E/Medial E'11.3 Tricuspid Valve TR P. Snlxnbzd045hc/sRAP JBOHNOEG4ifHh TR Peak Gr.83cnZfATVV27raFp Pulmonary Vein S1 Manemjei42.6cm/sS2 Odvjhyfn67.02cm/s D2 Jcktllvo87.0cm/sPVa [id number] LEFT VENTRICLE The left ventricle is normal size. There is borderline concentric left ventricular hypertrophy. The l eft ventricular systolic function is normal and the ejection fraction is within normal range. The Eje ction Fraction is >55%. There is normal LV segmental wall motion. Transmitral Doppler flow pattern is Grade I-abnormal relaxation pattern. RIGHT VENTRICLE The right ventricle is normal size. There is normal right ventricular wall thickness. The right ventr icular systolic function is normal. ATRIA The left atrium size is normal. The right atrium size is normal. The interatrial septum is intact wit h no evidence for an atrial septal defect or patent foramen ovale as noted on 2-D or Doppler imaging. AORTIC VALVE Not well visualized. Appears moderately calcified. Doppler and Color Flow revealed no significant aor tic regurgitation. There is no significant aortic valvular stenosis. MITRAL VALVE The mitral valve is normal in structure and function. There is no evidence of mitral valve prolapse. There is no mitral valve stenosis. Doppler and Color Flow revealed no mitral valve regurgitation note d. TRICUSPID VALVE The tricuspid valve is normal in structure and function. Doppler and Color Flow revealed trace tricus pid regurgitation. There is no tricuspid valve stenosis. PULMONIC VALVE The pulmonic valve is not well visualized. Doppler and Color Flow revealed no pulmonic valvular regur gitation. There is no pulmonic valvular stenosis. GREAT VESSELS The aortic root is normal in size. The IVC is normal in size and collapses >50% with inspiration. PERICARDIAL EFFUSION There is no evidence of significant pericardial effusion. Critical Notification Critical Value: No <Conclusion> The left ventricular systolic function is normal and the ejection fraction is within normal range. Th e Ejection Fraction is >55%. There is normal LV segmental wall motion. Technically difficult study. Signed by : Manuel Vasquez, Electronically Approved : 02/26/2019 11:56:31
[2019-02-26] MEDS ORDERED: DICL100G18 TP (12:03)
[2019-02-26] MEDS ORDERED: HYDR-3164 PO (12:03)
[2019-02-26] MEDS ORDERED: ATOR20TA58 PO (12:03)
--- NOTE | 2019-02-26 12:08 | PDOC3 ---
Discharge Summary Visit Information Date of Admission: Feb 25, 2019 Date of Discharge: Feb 26, 2019 Admitting Diagnosis: Chest pain Final Diagnosis Problems Medical Problems: (1) Chest pain Status: Acute Brief Hospital Course Allergies Allergies Coded Allergies Type Severity Reaction Last Updated Verified No Known Medication Allergies Allergy Unknown 10/09/17 Yes Vital Signs Vital Signs Date Time Temp Pulse Resp B/P (MAP) Pulse Ox O2 Delivery O2 Flow Rate FiO2 02/26/19 08:00 Room Air 02/26/19 07:00 97.6 68 18 148/62 (90) 95 97.6 Lab Results Laboratory Tests Test 02/25/19 17:16 02/25/19 17:55 02/25/19 21:15 02/26/19 04:05 White Blood Count 5.0 x10^3/uL (4.0-11.0) 5.3 x10^3/uL (4.0-11.0) Red Blood Count 4.62 x10^6/uL (3.50-5.40) 4.64 x10^6/uL (3.50-5.40) Hemoglobin 13.2 g/dL (12.0-15.5) 13.3 g/dL (12.0-15.5) Hematocrit 40.1 % (36.0-47.0) 40.6 % (36.0-47.0) Mean Corpuscular Volume 87 fL (79-100) 87 fL (79-100) Mean Corpuscular Hemoglobin 29 pg (25-35) 29 pg (25-35) Mean Corpuscular Hemoglobin Concent 33 g/dL (31-37) 33 g/dL (31-37) Red Cell Distribution Width 13.8 % (11.5-14.5) 13.6 % (11.5-14.5) Platelet Count 250 x10^3/uL (140-400) 235 x10^3/uL (140-400) Neutrophils (%) (Auto) 58 % (31-73) 61 % (31-73) Lymphocytes (%) (Auto) 27 % (24-48) 26 % (24-48) Monocytes (%) (Auto) 11 % (0-9) 9 % (0-9) Eosinophils (%) (Auto) 3 % (0-3) 3 % (0-3) Basophils (%) (Auto) 1 % (0-3) 1 % (0-3) Neutrophils # (Auto) 2.9 x10^3uL (1.8-7.7) 3.2 x10^3uL (1.8-7.7) Lymphocytes # (Auto) 1.4 x10^3/uL (1.0-4.8) 1.4 x10^3/uL (1.0-4.8) Monocytes # (Auto) 0.5 x10^3/uL (0.0-1.1) 0.5 x10^3/uL (0.0-1.1) Eosinophils # (Auto) 0.1 x10^3/uL (0.0-0.7) 0.2 x10^3/uL (0.0-0.7) Basophils # (Auto) 0.0 x10^3/uL (0.0-0.2) 0.1 x10^3/uL (0.0-0.2) Sodium Level 138 mmol/L (136-145) 141 mmol/L (136-145) Potassium Level 3.8 mmol/L (3.5-5.1) 3.7 mmol/L (3.5-5.1) Chloride Level 101 mmol/L (98-107) 104 mmol/L (98-107) Carbon Dioxide Level 29 mmol/L (21-32) 29 mmol/L (21-32) Anion Gap 8 (6-14) 8 (6-14) Blood Urea Nitrogen 21 mg/dL (7-20) 18 mg/dL (7-20) Creatinine 0.7 mg/dL (0.6-1.0) 0.8 mg/dL (0.6-1.0) Estimated GFR (Cockcroft-Gault) 81.8 70.1 BUN/Creatinine Ratio 30 (6-20) Glucose Level 117 mg/dL (70-99) 93 mg/dL (70-99) Calcium Level 8.7 mg/dL (8.5-10.1) 8.6 mg/dL (8.5-10.1) Total Bilirubin 0.2 mg/dL (0.2-1.0) Aspartate Amino Transf (AST/SGOT) 18 U/L (15-37) Alanine Aminotransferase (ALT/SGPT) 17 U/L (14-59) Alkaline Phosphatase 109 U/L (46-116) Troponin I Quantitative < 0.017 ng/mL (0.000-0.055) < 0.017 ng/mL (0.000-0.055) < 0.017 ng/mL (0.000-0.055) YB-Pbc-X-Type Natriuretic Peptide 82 pg/mL (0-124) Total Protein 7.5 g/dL (6.4-8.2) Albumin 3.6 g/dL (3.4-5.0) Albumin/Globulin Ratio 0.9 (1.0-1.7) Prothrombin Time 12.5 SEC (11.7-14.0) Prothromb Time International Ratio 1.0 (0.8-1.1) D-Dimer ([place]) 1.40 ug/mlFEU (0.00-0.50) Triglycerides Level 200 mg/dL (0-150) Cholesterol Level 221 mg/dL (0-200) LDL Cholesterol, Calculated 140 mg/dL (0-100) VLDL Cholesterol, Calculated 40 mg/dL (0-40) Non-HDL Cholesterol Calculated 180 mg/dL (0-129) HDL Cholesterol 41 mg/dL (40-60) Cholesterol/HDL Ratio 5.4 Test 02/26/19 06:00 Urine Collection Type Unknown Urine Color Yellow Urine Clarity Clear Urine pH 7.5 Urine Specific [place] 1.015 Urine Protein Negative mg/dL (NEG-TRACE) Urine Glucose (UA) Negative mg/dL (NEG) Urine Ketones (Stick) Negative mg/dL (NEG) Urine Blood Negative (NEG) Urine Nitrite Negative (NEG) Urine Bilirubin Negative (NEG) Urine Urobilinogen Dipstick 0.2 mg/dL (0.2 mg/dL) Urine Leukocyte Esterase Trace (NEG) Urine RBC Occ /HPF (0-2) Urine WBC Occ /HPF (0-4) Urine Squamous Epithelial Cells Few /LPF Urine Bacteria Few /HPF (0-FEW) Laboratory Tests Test 02/25/19 17:16 02/25/19 17:55 02/25/19 21:15 02/26/19 04:05 White Blood Count 5.0 x10^3/uL (4.0-11.0) 5.3 x10^3/uL (4.0-11.0) Red Blood Count 4.62 x10^6/uL (3.50-5.40) 4.64 x10^6/uL (3.50-5.40) Hemoglobin 13.2 g/dL (12.0-15.5) 13.3 g/dL (12.0-15.5) Hematocrit 40.1 % (36.0-47.0) 40.6 % (36.0-47.0) Mean Corpuscular Volume 87 fL (79-100) 87 fL (79-100) Mean Corpuscular Hemoglobin 29 pg (25-35) 29 pg (25-35) Mean Corpuscular Hemoglobin Concent 33 g/dL (31-37) 33 g/dL (31-37) Red Cell Distribution Width 13.8 % (11.5-14.5) 13.6 % (11.5-14.5) Platelet Count 250 x10^3/uL (140-400) 235 x10^3/uL (140-400) Neutrophils (%) (Auto) 58 % (31-73) 61 % (31-73) Lymphocytes (%) (Auto) 27 % (24-48) 26 % (24-48) Monocytes (%) (Auto) 11 % (0-9) 9 % (0-9) Eosinophils (%) (Auto) 3 % (0-3) 3 % (0-3) Basophils (%) (Auto) 1 % (0-3) 1 % (0-3) Neutrophils # (Auto) 2.9 x10^3uL (1.8-7.7) 3.2 x10^3uL (1.8-7.7) Lymphocytes # (Auto) 1.4 x10^3/uL (1.0-4.8) 1.4 x10^3/uL (1.0-4.8) Monocytes # (Auto) 0.5 x10^3/uL (0.0-1.1) 0.5 x10^3/uL (0.0-1.1) Eosinophils # (Auto) 0.1 x10^3/uL (0.0-0.7) 0.2 x10^3/uL (0.0-0.7) Basophils # (Auto) 0.0 x10^3/uL (0.0-0.2) 0.1 x10^3/uL (0.0-0.2) Sodium Level 138 mmol/L (136-145) 141 mmol/L (136-145) Potassium Level 3.8 mmol/L (3.5-5.1) 3.7 mmol/L (3.5-5.1) Chloride Level 101 mmol/L (98-107) 104 mmol/L (98-107) Carbon Dioxide Level 29 mmol/L (21-32) 29 mmol/L (21-32) Anion Gap 8 (6-14) 8 (6-14) Blood Urea Nitrogen 21 mg/dL (7-20) 18 mg/dL (7-20) Creatinine 0.7 mg/dL (0.6-1.0) 0.8 mg/dL (0.6-1.0) Estimated GFR (Cockcroft-Gault) 81.8 70.1 BUN/Creatinine Ratio 30 (6-20) Glucose Level 117 mg/dL (70-99) 93 mg/dL (70-99) Calcium Level 8.7 mg/dL (8.5-10.1) 8.6 mg/dL (8.5-10.1) Total Bilirubin 0.2 mg/dL (0.2-1.0) Aspartate Amino Transf (AST/SGOT) 18 U/L (15-37) Alanine Aminotransferase (ALT/SGPT) 17 U/L (14-59) Alkaline Phosphatase 109 U/L (46-116) Troponin I Quantitative < 0.017 ng/mL (0.000-0.055) < 0.017 ng/mL (0.000-0.055) < 0.017 ng/mL (0.000-0.055) RS-Uhv-[id number]-Type Natriuretic Peptide 82 pg/mL (0-124) Total Protein 7.5 g/dL (6.4-8.2) Albumin 3.6 g/dL (3.4-5.0) Albumin/Globulin Ratio 0.9 (1.0-1.7) Prothrombin Time 12.5 SEC (11.7-14.0) Prothromb Time International Ratio 1.0 (0.8-1.1) D-Dimer ([place]ona) 1.40 ug/mlFEU (0.00-0.50) Triglycerides Level 200 mg/dL (0-150) Cholesterol Level 221 mg/dL (0-200) LDL Cholesterol, Calculated 140 mg/dL (0-100) VLDL Cholesterol, Calculated 40 mg/dL (0-40) Non-HDL Cholesterol Calculated 180 mg/dL (0-129) HDL Cholesterol 41 mg/dL (40-60) Cholesterol/HDL Ratio 5.4 Test 02/26/19 06:00 Urine Collection Type Unknown Urine Color Yellow Urine Clarity Clear Urine pH 7.5 Urine Specific [place] 1.015 Urine Protein Negative mg/dL (NEG-TRACE) Urine Glucose (UA) Negative mg/dL (NEG) Urine Ketones (Stick) Negative mg/dL (NEG) Urine Blood Negative (NEG) Urine Nitrite Negative (NEG) Urine Bilirubin Negative (NEG) Urine Urobilinogen Dipstick 0.2 mg/dL (0.2 mg/dL) Urine Leukocyte Esterase Trace (NEG) Urine RBC Occ /HPF (0-2) Urine WBC Occ /HPF (0-4) Urine Squamous Epithelial Cells Few /LPF Urine Bacteria Few /HPF (0-FEW) Brief Hospital Course Ms. Whalen is a 73 old female w/ PMHx dementia, HTN, severe OA who is admitted for CP x2 days from the halfway no prior cardiac history history is limited by the patient's mild dementia currently not having any pain she did have a hip surgery 6 months ago shows she is basically wheelchair-bound Seen by cardiology, had negative EKG and troponins as well as CXR, and negative CTPA, as well as Echo - The left ventricular systolic function is normal and the ejection fraction is within normal range. The Ejection Fraction is >55%. There is normal LV segmental wall motion. Technically difficult study. Greater than 30 minutes spent on discharge back to SNF Discharge Information Condition at Discharge: Improved Follow Up: Weeks (2) Disposition/Orders: D/C to Another Facility Scheduled Atorvastatin Calcium (Atorvastatin Calcium) 20 Mg Tablet, 20 MG PO QHS for HLD for 30 Days, #30 Ref 3 Prescribed by: EVA GARCIA MD on 02/26/19 1203 Citalopram Hydrobromide (Citalopram Hbr) 10 Mg Tablet, 10 MG PO DAILY, (Reported ) Entered as Reported by: THANG FLORES on 09/27/17 1300 Last Action: Continued on 02/25/192041 by ROSIO KENDALL MD Diclofenac Sodium (Voltaren) 100 Gm Gel..gram., 1 SCOTTIE TP BID for OA left knee for 30 Days, #60 Ref 2 Prescribed by: EVA GARCIA MD on 02/26/19 1203 Furosemide (Lasix) 40 Mg Tablet, 40 MG PO DAILY, (Reported) Entered as Reported by: THANG FLORES on 09/27/17 1300 Last Action: HELD on 02/25/192041 by ROSIO KENDALL MD Meloxicam (Mobic) 7.5 Mg Tablet, 7.5 MG PO DAILY, (Reported) Entered as Reported by: THANG FLORES on 09/27/17 1300 Last Action: HELD on 02/25/192041 by ROSIO KENDALL MD Potassium Chloride (Potassium Chloride) 20 Meq Tablet.er, 20 MEQ PO DAILY, ( Reported) Entered as Reported by: THANG FLORES on 09/27/17 1300 Last Action: Converted on 02/25/192041 by ROSIO KENDALL MD Scheduled PRN Acetaminophen (Acetaminophen) 500 Mg Tablet, 1,000 MG PO PRN Q8HRS PRN for PAIN, (Reported) Entered as Reported by: HTANG FLORES on 09/27/17 1300 Last Action: Converted on 02/25/192041 by ROSIO KENDALL MD Hydrocodone/Apap 5-325 ([place] 5-325 Tablet) 1 Each Tablet, 1 TAB PO PRN Q6HRS PRN for PAIN for 6 Days, #18 Ref 0 Prescribed by: EVA GARCIA MD on 02/26/19 1203 Melatonin (Melatonin) 3 Mg Tablet, 5 MG PO QHS PRN for INSOMNIA, (Reported) Entered as Reported by: THANG FLORES on 09/27/17 1300 Last Action: Converted on 02/25/192041 by ROSIO KENDALL MD Nystatin (Nystatin) 1 Each Powder.ea., 1 EACH PO PRN PRN for SEE COMMENTS, ( Reported) USE PRN FOR CANDIDIASIS OF SKIN AND NAIL Entered as Reported by: THANG FLORES on 01/01/17 1548 Last Action: Converted on 02/25/192041 by MD JOSE ORTIZ CHRISTOPHER S MD Feb 26, 2019 12:08
--- NOTE | 2019-02-26 12:27 | NUR ---
SS following up with discharge planning. Discharge orders received. SS phoned and faxed discharge orders to [facility], ; fax [phone]. Pt will discharge today and return to [facility]. [facility] to arrange transportation. Pt's RN notified.
[2019-02-26] MEDS ORDERED: oxyCODONE IR 5 MG TABLET PO PRN (13:15)
[2019-02-26] MEDS ORDERED: ASPIRIN 325 MG TABLET PO PRN (13:15)
[2019-02-26] MEDS ORDERED: LIDOCAINE (700MG/PATCH) PATCH. TD SCH (14:00)
--- NOTE | 2019-02-26 14:41 | NUR ---
report called to Katie at [facility] [phone].
--- NOTE | 2019-02-26 15:46 | NUR ---
Discharge Note: SOFIE HARRIS Discharge instructions and discharge home medications reviewed with [facility] nurse Katie and a copy given. All questions have been answered and understanding verbalized. Discontinued IV line: catheter intact. Patient discharged to [facility] of with facility transport via wheelchair.
[2019-02-26] MEDS ORDERED: PATCH REMOVAL. MC SCH (21:00)
[2019-02-26] MEDS ORDERED: NYSTATIN 100,000 UNIT/GM TOPICAL CREAM 15GM TUBE. TP SCH (21:00)
[2019-02-26] MEDS ORDERED: ATORVASTATIN CALCIUM 20 MG TABLET PO SCH (21:00)
== END 2019-02-26 14:05 | disposition home or self-care (01) | DRG 313 ==
LOC: ER 16:27 → ED HOLD 16:53 → 2 NORTH 19:46
PROVIDERS: ADMIT Family Medicine; ATTEND Family Medicine
DX: R07.89 Other chest pain (principal); N39.0 Urinary tract infection, site not specified; F03.91 Unspecified dementia, unspecified severity, with behavioral disturbance; Z96.641 Presence of right artificial hip joint; M41.9 Scoliosis, unspecified; M25.562 Pain in left knee; M25.552 Pain in left hip; E78.5 Hyperlipidemia, unspecified; M19.90 Unspecified osteoarthritis, unspecified site; K57.90 Diverticulosis of intestine, part unspecified, without perforation or abscess without bleeding; I10 Essential (primary) hypertension; M17.12 Unilateral primary osteoarthritis, left knee; Z99.3 Dependence on wheelchair; Z87.440 Personal history of urinary (tract) infections; Z86.718 Personal history of other venous thrombosis and embolism
CPT/HCPCS: 36415; 71045; 71275; 80048; 80053; 80061; 81001; 83880; 84484; 85025; 85379; 85610; 87086; 87641; 93005; 93306; Q9967; 99285-25